=== PATIENT | male | born 1935 | race Caucasian/White ===

== ENCOUNTER 2017-05-26 16:29 | Inpatient (IN) | payer MEDICARE, OTHER ==
[~2017-05-26] VITALS: Ht 167.6 cm; Wt 68.5 kg
[2017-05-26 16:43] LABS: ABNORMAL IP MESSAGE 1; HEMATOCRIT 16.1 % (42.0-52.0); MEAN CORPUSCULAR HEMOGLOBIN 29.3 pg (29.0-33.0); MEAN CORPUSCULAR HGB CONC 29.8 g/dl (32.0-37.0); MEAN CORPUSCULAR VOLUME 98.2 fl (82.0-101.0); MEAN PLATELET VOLUME 11.2 fl (7.4-10.4); PLATELET COUNT 177 10^3/UL (140-415); RED BLOOD COUNT 1.64 10^6/ul (4.70-6.10); RED CELL DISTRIBUTION WIDTH 14.6 % (11.5-14.5)
[2017-05-26 16:45] LABS: ADD SCAN DIFF NO; HEMOGLOBIN 4.8 g/dl (14.0-18.0)
[2017-05-26] MEDS ORDERED: SOD CHLORIDE 0.9% 250 ML IV ONE (16:45)
--- NOTE | 2017-05-26 16:46 | RADRPT ---
PROCEDURE: CT Brain without contrast. CLINICAL INDICATION: Stroke TECHNIQUE: A CT of the brain was performed on a [employer]peed 64-slice CT scanner utilizing axial imaging from the skull base through the vertex without IV contrast. Multiplanar reformatted images were made. Images were reviewed on a PACS workstation. The CTDIvol is 45.01 mGy and the DLP is 72 0.23 mGycm. One of the following 3 dose reduction techniques were used: Automated exposure control; adjustment of the mA and/or kV according to patient size; or use of iterative reconstruction technique. COMPARISON: None available FINDINGS: There is no intracranial hemorrhage, mass effect, or midline shift. No extra-axial fluid collection is seen. The ventricles and sulci are age appropriate. Mild diffuse volume loss is present. Mild d ecreased attenuation is present in the bilateral subcortical white matter, centrum semiovale, and bi lateral periventricular white matter. Mild ventriculomegaly is present most compatible with central volume loss. Mild vascular calcifications are present of the bilateral intracranial internal caroti d arteries and the vertebral arteries. The visualized scalp and calvarium are normal. The bilateral orbits demonstrate prior lens replacem ent. The bilateral mastoid air cells and middle ear cavities are clear. IMPRESSION: 1. No evidence of acute intracranial hemorrhage, infarcts, or acute intracranial pathology. 2. Mild chronic microvascular ischemic disease and diffuse volume loss. 3. Mild atherosclerotic vascular disease A call report was made to Demond Harley at 05/26/2017 4:44:28 PM following the completion of the exami nation by the undersigned. RPTAT: HDC .Kelle Walsh MD, Date Time Electronically viewed and signed by .Kelle Walsh MD, MD on 05/26/2017 16:45 .C/
[2017-05-26 16:58] LABS: INR 1.28; PROTIME 16.1 Sec (12.2-14.2); PT RATIO 1.3
[2017-05-26 16:59] LABS: ANION GAP 10 (8-16); BLOOD UREA NITROGEN 23 mg/dl (7-20); CALCIUM 8.9 mg/dl (8.4-10.2); CARBON DIOXIDE 28 mmol/L (21-31); CHLORIDE 103 mmol/L (97-110); CREATININE 1.11 mg/dl (0.61-1.24); GLUCOSE 94 mg/dl (70-220); PARTIAL THROMBOPLASTIN TIME 31.2 Sec (25.0-35.0); POTASSIUM 4.2 mmol/L (3.5-5.1); SODIUM 137 mmol/L (135-144)
[2017-05-26] MEDS ORDERED: ACETAMINOPHEN 325 MG TAB PO PRN ×2 (17:00→17:30)
[2017-05-26] MEDS ORDERED: ONDANSETRON 4 MG INJ IV PRN (17:00)
[2017-05-26 17:03] LABS: EOSINOPHILS # 0.1 10^3/ul (0.0-0.5); LYMPHOCYTES # 0.8 10^3/ul (0.8-2.9); MONOCYTE # 0.1 10^3/ul (0.3-0.9); NEUTROPHIL # 5.4 10^3/ul (1.6-7.5)
[2017-05-26 17:13] LABS: TROPONIN-I < 0.012 ng/ml (0.00-0.12)
[2017-05-26] MEDS ORDERED: TIMO5DRO30 LEFT EYE (17:18)
[2017-05-26] MEDS ORDERED: PRD1OP5 RIGHT EYE (17:18)
[2017-05-26] MEDS ORDERED: RIVA20TA PO (17:20)
[2017-05-26] MEDS ORDERED: OXYB5TAB22 PO (17:20)
[2017-05-26] MEDS ORDERED: CLON1TAB3 PO (17:21)
[2017-05-26] MEDS ORDERED: ATOR20TA38 PO (17:22)
[2017-05-26] MEDS ORDERED: FEBU40TA PO (17:22)
--- NOTE | 2017-05-26 17:27 | HP ---
Date/Time of Note Date/Time of Note DATE: 05/26/17 TIME: 17:24 Assessment/Plan VTE Prophylaxis VTE Prophylaxis Intervention: SCD's Assessment/Plan Assessment/Plan 81 yo M with pmhx celiac, ?AFib presents with dark stools, fatigue, pallor found to have significant anemia to hgb 4s. Etio most likely GIBleed given hx, but cannot exclude other etios PLAN pRBC transfusion now GI eval in AM fobt ordered heme eval with haptoglobin, LDH, b12, TSH normocytosis suspect 2/2 rapid blood loss bilis normal which makes hemolysis seem less likely also would be unusual for new hemoglobinopathy to present at age 81. defer hgb electrophoresis SCDs only cont home eye drops and gout medicine, statin HOLD ATC HPI/ROS Admit Date/Time Admit Date/Time Hx of Present Illness Chief complaint: fatigue HPI 81 yo M with h/o celiac disease, h/o bowel obstruction, ?AFib presents with several weeks of feeling fatigued and dark stools. Labs in ER notable for hgb 4. Pt denies heavy NSAID use. PMH/Family/Social Past Medical History Celiac ?AFib glaucoma gout Social History Smoking Status: Never smoker Exam/Review of Systems Vital Signs Vitals Vital Signs Date Time Temp Pulse Resp B/P Pulse Ox O2 Delivery O2 Flow Rate FiO2 05/26/17 16:47 Nasal Cannula 2 05/26/17 16:39 98.3 81 19 155/56 100 Exam Exam very pale laying in bed nad MMM EOMI lungs clear no mrg abd soft no le edema labs reviewed, hgb 4s Labs Result Diagram: 05/26/17 1635 05/26/17 1635 Medications Medications Current Medications Acetaminophen (Tylenol Tab) 650 mg Q6H PRN PO PAIN LEVEL 1-3 OR FEVER; Start at 17:30; Status UNV Acetaminophen/ Hydrocodone Bitart ([place] (5/325)) 1 tab Q6H PRN PO MODERATE PAIN LEVEL 4-6; Start 05/26/17 at 17:30; Status UNV Morphine Sulfate (morphine) 2 mg Q4H PRN IV SEVERE PAIN LEVEL 7-10; Start at 17:30; Status UNV Docusate Sodium (Colace) 100 mg Q12H PRN PO CONSTIPATION; Start 05/26/17 at 17: 30; Status UNV STOLAR,WILLIS MD May 26, 2017 17:27
[2017-05-26] MEDS ORDERED: HYDROCODONE/APAP (5/325) TAB PO PRN (17:30)
[2017-05-26] MEDS ORDERED: DOCUSATE SODIUM 100 MG CAP PO PRN (17:30)
[2017-05-26] MEDS ORDERED: morphine 2 MG INJ IV PRN (17:30)
[2017-05-26] MEDS ORDERED: NACL 0.9% 3 ML SYG IV SCH (17:30)
--- NOTE | 2017-05-26 17:35 | RADRPT ---
PROCEDURE: XR Chest. CLINICAL INDICATION: Chest pain TECHNIQUE: AP view of the chest was performed. COMPARISON: None FINDINGS: The cardiomediastinal silhouette is within normal limits. The lungs are clear. No signs of pleural f luid or pneumothorax are seen. The osseous structures and soft tissues are unremarkable. IMPRESSION: No evidence for active cardiopulmonary disease. RPTAT: QQ .Tammi Martinez MD, MD Date Time Electronically viewed and signed by .Tammi Martinez MD, on 05/26/2017 17:35 .F/
--- NOTE | 2017-05-26 18:00 | ERA ---
ER Documentation Chief Complaint Date/Time DATE: 05/26/17 TIME: 17:57 Chief Complaint BIB RA FOR EVAL OF GENERALIZED WEAKNESS. PT PRESENTS COOL AND PALE HPI Patient is a 81-year-old male with hypertension, TIA, and celiac disease who presents with weakness. A code stroke was called from the field at 1623 due to left-sided facial droop. The patient says that he has not been feeling well for about 13 months. However 2 hours ago he developed acute onset weakness and left-sided facial droop. His blood sugar was 124. He says that he has been having black or bloody stools. He has had colonoscopy in the past. ROS All systems reviewed and are negative except as per history of present illness. Medications Home Meds Reported Medications Atorvastatin Calcium* (Atorvastatin Calcium*) 20 Mg Tablet, 20 MG PO QHS, #30 TAB 05/26/17 Febuxostat* (Uloric*) 40 Mg Tablet, 40 MG PO DAILY, TAB 05/26/17 Clonazepam* (Clonazepam*) 1 Mg Tablet, 1.5 MG PO QHS Y for SLEEP, TAB 05/26/17 Rivaroxaban* (Xarelto*) 20 Mg Tablet, 20 MG PO WITH DINNER, TAB 05/26/17 Oxybutynin Chloride* (Ditropan* XL) 5 Mg Tabsr, 5 MG PO DAILY, TAB.SA 05/26/17 Prednisolone Acetate* (Pred Forte*) 5 Ml Susp, 1 DROP RIGHT EYE QID, EA 05/26/17 Timolol Maleate* (Timoptic*) 0.5%-5ml Opht, 1 DROP LEFT EYE BID, #1 EA 05/26/17 Allergies Allergies: Coded Allergies: No Known Allergy (Unverified , 05/26/17) PMhx/Soc History of Surgery: Yes (BOWEL RESECTION) Anesthesia Reaction: No Hx Neurological Disorder: No Hx Respiratory Disorders: No Hx Cardiac Disorders: Yes (HTN) Hx Psychiatric Problems: No Hx Miscellaneous Medical Probl: Yes (DIVERTICULITIS, CELIAC DISEASE) Hx Alcohol Use: No Hx Substance Use: No Hx Tobacco Use: No Smoking Status: Never smoker FmHx Family History: No diabetes Physical Exam Vitals Vital Signs Date Time Temp Pulse Resp B/P Pulse Ox O2 Delivery O2 Flow Rate FiO2 05/26/17 16:47 Nasal Cannula 2 05/26/17 16:39 98.3 81 19 155/56 100 Physical Exam Const: Patient appears extremely pale Head: Atraumatic Eyes: Normal Conjunctiva ENT: Normal External Ears, Nose and Mouth. Neck: Full range of motion..~ No meningismus. Resp: Clear to auscultation bilaterally Cardio: Regular rate and rhythm, no murmurs Abd: Soft, non tender, non distended. Normal bowel sounds Skin: Pale skin diffusely Back: No midline or flank tenderness Ext: No cyanosis, or edema Neur: Awake and alert, cranial nerves II through XII intact, strength is 5 out of 5 in all 4 extremities, no slurred speech Psych: Normal Mood and Affect Result Diagram: 05/26/17 1635 05/26/17 1635 Results 24 hrs Laboratory Tests Test 05/26/17 16:35 White Blood Count 6.410^3/ul Red Blood Count 1.6410^6/ul Hemoglobin 4.8g/dl Hematocrit 16.1% Mean Corpuscular Volume 98.2fl Mean Corpuscular Hemoglobin 29.3pg Mean Corpuscular Hemoglobin Concent 29.8g/dl Red Cell Distribution Width 14.6% Platelet Count 23919^3/UL Mean Platelet Volume 11.2fl Neutrophils % 84.0% Band Neutrophils % 1.0% Lymphocytes % 12.0% Monocytes % 2.0% Eosinophils % 1.0% Neutrophils # 5.410^3/ul Lymphocytes # 0.810^3/ul Monocytes # 0.110^3/ul Eosinophils # 0.110^3/ul Prothrombin Time 16.1Sec Prothrombin Time Ratio 1.3 INR International Normalized Ratio 1.28 Activated Partial Thromboplast Time 31.2Sec Sodium Level 137mmol/L Potassium Level 4.2mmol/L Chloride Level 103mmol/L Carbon Dioxide Level 28mmol/L Anion Gap 10 Blood Urea Nitrogen 23mg/dl Creatinine 1.11mg/dl Glucose Level 94mg/dl Hemoglobin A1c % Calcium Level 8.9mg/dl Troponin I < 0.012ng/ml Current Medications Medications (Trade) Dose Ordered Sig/Denisa Route PRN Reason Start Time Stop Time Status Last Admin Dose Admin Sodium Chloride (NS) 250 ml @ 0 mls/hr Q0M ONCE IV 05/26/17 16:45 05/26/17 16:46 DC Ondansetron HCl (Zofran Inj) 4 mg BRIDGE ORDER PRN IV NAUSEA AND/OR VOMITING 05/26/17 17:00 05/27/17 16:59 Acetaminophen (Tylenol Tab) 650 mg ER BRIDGE PRN PO MILD PAIN/FEVER 05/26/17 17:00 05/27/17 16:59 IV Flush (NS 3 ml) 3 ml PER PROTOCOL IV 05/26/17 17:30 Acetaminophen (Tylenol Tab) 650 mg Q6H PRN PO PAIN LEVEL 1-3 OR FEVER 05/26/17 17:30 Acetaminophen/ Hydrocodone Bitart ([place] (5/325)) 1 tab Q6H PRN PO MODERATE PAIN LEVEL 4-6 05/26/17 17:30 Morphine Sulfate (morphine) 2 mg Q4H PRN IV SEVERE PAIN LEVEL 7-10 05/26/17 17:30 Docusate Sodium (Colace) 100 mg Q12H PRN PO CONSTIPATION 05/26/17 17:30 Procedures/MDM EKG read by me: Rate/Rhythm: Regular rate and rhythm at a normal rate Intervals: Normal Impression: No evidence of ischemia or arrhythmia CT brain shows no acute stroke per radiology. Patient is an 81-year-old male presents with acute weakness. He was found to be profoundly pale and I was concerned about acute anemia. A code stroke was called from the field at 1623. The patient arrived at 1627. I spoke with Dr. Toney from tele-neurology at 1650 and we agreed that this patient would not be a candidate for TPA and the code stroke was canceled. The patient was found to have a hemoglobin of 4.8 and was transfused 4 units of packed red blood cells. I believe this is likely the cause of his pale skin and weakness. I doubt acute stroke at this time. He likely has a slow GI bleed potentially from celiac disease versus colon cancer. I spoke to Dr. Hassan who will admit the patient to a medical surgical bed. She will consult gastroenterology for further evaluation. Critical Care: Time: 35 minutes excluding all billable procedures. Treatments/Evaluations: Close monitoring and treatment of unstable vital signs, cardiorespiratory, and neurologic status, while maintaining tight balance of fluid, respiratory, and cardiac interventions. Departure Diagnosis: Primary Impression: Anemia Qualified Code: D64.9 - Anemia, unspecified type Additional Impressions: GI bleed Qualified Code: K92.2 - Gastrointestinal hemorrhage, unspecified gastrointestinal hemorrhage type Acute weakness Condition: Serious AMANDA STRANGE MD May 26, 2017 18:00
[2017-05-26 18:31] LABS: IRON 16 ug/dl (35-150); LACTATE DEHYDROGENASE 195 IU/L (313-618)
[2017-05-26 18:40] LABS: TOTAL IRON BINDING CAPACITY 269 ug/dl (241-421)
[2017-05-26] MEDS ORDERED: clonAZEPAM 0.5 MG TAB PO PRN (19:00)
[2017-05-26 19:31] LABS: ALBUMIN 3.4 g/dl (3.3-4.9); BILIRUBIN,INDIRECT 0.7 mg/dl (0-1.1); BILIRUBIN,TOTAL 0.7 mg/dl (0.2-1.3); TOTAL PROTEIN 5.2 g/dl (6.1-8.1)
--- NOTE | 2017-05-26 20:16 | CONS ---
Date/Time of Note Date/Time of Note DATE: 05/26/17 TIME: 20:10 Assessment/Plan Assessment/Plan Chief Complaint/Hosp Course Impression: 1. symptomatic anemia with hgb 4.8 2. melena 3. weakness 4. celiac disease Recommendation: 1. transfuse to keep hgb > 8 2. protonix 40 mg iv bid 3. avoid NSAIDS 4. plan for emergent EGD and colonoscopy for hemostasis. 5. risks, benefits and alternatives of EGD and colonoscopy explained to patient. I answered all of patient's questions and then he provided informed consent. Problems: Consultation Date/Type/Reason Admit Date/Time Date of Consultation: May 26, 2017 Reason for Consultation melena, symptomatic anemia Hx of Present Illness 81-year-old male who is admitted for symptomatic anemia and melena. He has h/o hypertension, TIA, and celiac disease. A code stroke was called from the field at 1623 due to left-sided facial droop. The patient says that he has not been feeling well for about 13 months. However 2 hours ago he developed acute onset weakness and left-sided facial droop. His blood sugar was 124. He says that he has been having black or bloody stools. He has had colonoscopy and EGD 10 yrs ago that he cannot remember the result of. No f, c, cp, sob, brbpr, coffee ground emesis or hematemesis. all point ROS administered, pertinent positives and negatives in HPI otherwise negative. Past Medical History celiac disease, TIA, diverticulitis Medical History: high cholesterol, hypertension Past Surgical History Past Surgical Hx: appendectomy Family History Significant Family History: diabetes Social History Alcohol Use: none Smoking Status: Never smoker Drug Use: none Exam/Review of Systems Vital Signs Vitals Vital Signs Date Time Temp Pulse Resp B/P Pulse Ox O2 Delivery O2 Flow Rate FiO2 05/26/17 18:30 98.3 88 19 125/36 100 2.0 05/26/17 16:47 Nasal Cannula Exam Constitutional: alert, frail, oriented Psych: nl mood/affect, no complaints Head: atraumatic, normocephalic Eyes: EOMI, nl conjunctiva, nl lids, nl sclera ENMT: mucosa pink and moist, nl external ears & nose, nl lips & teeth, nl nasal mucosa & septum Neck: non-tender, supple Respiratory: clear to auscultation, normal air movement Cardiovascular: nl pulses, regular rate and rhythm Gastrointestinal: bowel sounds, non-tender, soft, surgical scars Neurological: nl mental status, nl speech, nl strength Results Result Diagram: 05/26/17 1635 05/26/17 1635 Results 24 hrs Laboratory Tests Test 05/26/17 16:35 White Blood Count 6.4 Red Blood Count 1.64 L Hemoglobin 4.8 *L Hematocrit 16.1 L Mean Corpuscular Volume 98.2 Mean Corpuscular Hemoglobin 29.3 Mean Corpuscular Hemoglobin Concent 29.8 L Red Cell Distribution Width 14.6 H Platelet Count 177 Mean Platelet Volume 11.2 H Neutrophils % 84.0 H Band Neutrophils % 1.0 Lymphocytes % 12.0 L Monocytes % 2.0 Eosinophils % 1.0 Neutrophils # 5.4 Lymphocytes # 0.8 Monocytes # 0.1 L Eosinophils # 0.1 Prothrombin Time 16.1 H Prothrombin Time Ratio 1.3 INR International Normalized Ratio 1.28 Activated Partial Thromboplast Time 31.2 Sodium Level 137 Potassium Level 4.2 Chloride Level 103 Carbon Dioxide Level 28 Anion Gap 10 Blood Urea Nitrogen 23 H Creatinine 1.11 Glucose Level 94 Hemoglobin A1c Calcium Level 8.9 Iron Level 16 L Total Iron Binding Capacity 269 Percent Iron Saturation 6 L Total Bilirubin 0.7 Direct Bilirubin 0.00 Indirect Bilirubin 0.7 Aspartate Amino Transf (AST/SGOT) 18 Alanine Aminotransferase (ALT/SGPT) 28 Alkaline Phosphatase 30 L Lactate Dehydrogenase 195 L Troponin I < 0.012 Total Protein 5.2 L Albumin 3.4 Vitamin B12 Level > 1000 H Thyroid Stimulating Hormone (TSH) 2.830 Medications Medications Current Medications Acetaminophen (Tylenol Tab) 650 mg Q6H PRN PO PAIN LEVEL 1-3 OR FEVER; Start at 17:30 Acetaminophen/ Hydrocodone Bitart ([place] (5/325)) 1 tab Q6H PRN PO MODERATE PAIN LEVEL 4-6; Start 05/26/17 at 17:30 Morphine Sulfate (morphine) 2 mg Q4H PRN IV SEVERE PAIN LEVEL 7-10; Start at 17:30 Docusate Sodium (Colace) 100 mg Q12H PRN PO CONSTIPATION; Start 05/26/17 at 17: 30 Atorvastatin Calcium (Lipitor) 20 mg QHS PO ; Start 05/26/17 at 21:00 Clonazepam (Klonopin) 1.5 mg QHS PRN PO SLEEP; Start 05/26/17 at 19:00 Febuxostat (Uloric) 40 mg DAILY PO ; Start 05/27/17 at 09:00 Oxybutynin Chloride (Ditropan Xl) 5 mg DAILY PO ; Start 05/27/17 at 09:00 Prednisolone Acetate (Pred-Forte 1%) 1 drop QID RIGHT EYE ; Start 05/26/17 at 21: 00 Timolol Maleate (Timoptic 0.5%) 1 drop BID LEFT EYE ; Start 05/26/17 at 21:00 JUVE MCHUGH MD May 26, 2017 20:15
[2017-05-26 20:30] VITALS: TEMP 98.3
[2017-05-26] MEDS ORDERED: BISACODYL (EC) 5 MG TAB PO ONE (20:30)
[2017-05-26] MEDS ORDERED: POLYETHYLENE GLYCOL 3350 119 GM POWDER PO ONE (20:30)
[2017-05-26] MEDS ORDERED: MAGNESIUM CITRATE 300 ML BTL PO ONE (20:30)
[2017-05-26 21:40] VITALS: Ht 167.6 cm; Wt 68.5 kg
[2017-05-26 21:49] VITALS: BP 146/67; RESP 19
[2017-05-26] MEDS: ATORVASTATIN 20 MG TAB PO SCH (23:18)
[2017-05-26] MEDS: PREDNISOLONE ACET 1% 5 ML OPH RIGHT EYE SCH (23:48)
[2017-05-26] MEDS: TIMOLOL 0.5% 5 ML OPH LEFT EYE SCH (23:48)
[2017-05-27] VITALS (10 sets, daily range): BP systolic 127–171; BP diastolic 57–74; PULSE 77–92; RESP 13–20
[2017-05-27 02:55] LABS: ADD UMIC NO; UR ASCORBIC ACID 40 mg/dL (NEGATIVE); UR BILIRUBIN (Dip) NEGATIVE (NEGATIVE); UR BLOOD (Dip) NEGATIVE (NEGATIVE); UR CLARITY CLEAR (CLEAR); UR COLOR YELLOW (YELLOW); UR GLUCOSE (Dip) NEGATIVE (NEGATIVE); UR KETONES (Dip) TRACE mg/dL (NEGATIVE); UR LEUKOCYTE ESTERASE (Dip) NEGATIVE Leu/ul (NEGATIVE); UR NITRITE (Dip) NEGATIVE (NEGATIVE); UR SPECIFIC GRAVITY (Dip) 1.014 (1.003-1.030); UR TOTAL PROTEIN (Dip) NEGATIVE (NEGATIVE); UR UROBILINOGEN (Dip) NEGATIVE (NEGATIVE)
[2017-05-27 03:07] LABS: BARBITURATES Negative (NEGATIVE); BENZODIAZEPINES Negative (NEGATIVE); CANNABINOIDS Negative (NEGATIVE); COCAINE Negative (NEGATIVE); OPIATES Negative (NEGATIVE)
[2017-05-27] MEDS ORDERED: POLYETHYLENE GLYCOL 3350 119 GM POWDER PO ONE (06:00)
[2017-05-27] MEDS ORDERED: BISACODYL (EC) 5 MG TAB PO ONE (06:00)
[2017-05-27 06:36] LABS: BASOPHILS % 0.2 % (0.0-2.0); EOSINOPHILS # 0.1 10^3/ul (0.0-0.5); EOSINOPHILS % 0.7 % (0.0-7.0); HEMATOCRIT 34.7 % (42.0-52.0); HEMOGLOBIN 11.4 g/dl (14.0-18.0); LYMPHOCYTES # 1.1 10^3/ul (0.8-2.9); LYMPHOCYTES % 8.7 % (15.0-51.0); MEAN CORPUSCULAR HGB CONC 32.9 g/dl (32.0-37.0); MEAN CORPUSCULAR VOLUME 91.3 fl (82.0-101.0); MEAN PLATELET VOLUME 11.7 fl (7.4-10.4); MONOCYTE # 0.8 10^3/ul (0.3-0.9); MONOCYTES % 6.9 % (0.0-11.0); NEUTROPHILS % 83.2 % (39.0-77.0); PLATELET COUNT 193 10^3/UL (140-415); RED CELL DISTRIBUTION WIDTH 16.4 % (11.5-14.5)
[2017-05-27 07:06] LABS: ADD SCAN DIFF NO
[2017-05-27] MEDS ORDERED: ONDANSETRON 4 MG INJ ONE (08:16)
[2017-05-27] MEDS ORDERED: METOCLOPRAMIDE 10 MG INJ ONE (08:16)
[2017-05-27] MEDS ORDERED: MIDAZOLAM 1 MG/ML 2 ML INJ ONE (08:16)
[2017-05-27] MEDS ORDERED: ETOMIDATE 20 MG INJ ONE (08:16)
[2017-05-27] MEDS ORDERED: FENTAnyl 50 MCG/ML VIAL ONE (08:16)
--- NOTE | 2017-05-27 08:20 | OPR ---
Date/Time of Note Date/Time of Note DATE: 05/27/17 TIME: 08:19 Operative Report Free Text/Dictation Recommendations: 1. no NSAIDs 2. glutten free diet 3. protonix 40 mg bid for at least 2 wks 4. if h/h drops further, will need to change protonix 40 po bid to 8 mg/hr gtt. 5. due to poor prep and large diverticulosis, can repeat colonoscopy if patient develops s/s of overt lower GI bleed, eg brbpr Procedure Date: May 27, 2017 Preoperative Diagnosis 1. symptomatic anemia 2. melena and hematochezia Surgeon: JUVE MCHUGH MD Anesthesia: MAC Anesthesiologist: AISHA RAMÍREZ MD Estimated Blood Loss: minimal Complications: None Pt Condition Post Procedure: stable Disposition: PACU Indications symptomatic anemia Operative\Procedure Findings 1. multiple gastric ulcers, one of which was bleeding which hemostasis was achieved with placement of one hemoclip 2. large diverticulosis 3. small internal hemorrhoids Procedure Description After informed consent and timeout, patient was sedated. After adequate sedation , I inserted an adult EGD scope from the mouth and advanced to 2nd portion of duodenum. Retroflexion was performed in the body of stomach revealing cardia and fundus. In the stomach, there are multiple shallow ulcers but one of which was actively oozing of blood s/p hemostasis with placement of one hemoclip. I then withdraw the EGD scope to GEJ and Z line at 40 cm, no hiatal hernia. Air then suctioned out as I completely removed the scope. Patient then turned around for colonoscopy. Rectal exam normal with normal tone. I then inserted an colonoscope from the rectum and advanced to distal transverse colon at 50 cm. I could not go any further due to the large diverticulosis which can be intubated by colonoscope and poor bowel prep. Retroflexion performed in rectum showing small sized internal hemorrhoids. I then suctioned out the air as I completely removed the colonoscope. JUVE MCHUGH MD May 27, 2017 08:20
[2017-05-27] MEDS ORDERED: METOCLOPRAMIDE 10 MG INJ IV PRN (09:00)
[2017-05-27] MEDS ORDERED: ONDANSETRON 4 MG INJ IV PRN (09:00)
[2017-05-27] MEDS: PREDNISOLONE ACET 1% 5 ML OPH RIGHT EYE SCH ×2 (09:00→12:32)
[2017-05-27] MEDS: FEBUXOSTAT 40 MG TABLET PO SCH (09:00)
[2017-05-27] MEDS ORDERED: PANTOPRAZOLE 40 MG INJ IV ONE (09:30)
--- NOTE | 2017-05-27 09:31 | PN ---
Date/Time of Note Date/Time of Note DATE: 05/27/17 TIME: 09:28 Assessment/Plan VTE Prophylaxis VTE Prophylaxis Intervention: SCD's Lines/Catheters IV [facility]ter [facility]from [facility]): Peripheral IV Assessment/Plan Assessment/Plan 81 yo M with pmhx diverticulosis, celiac admitted for symptomatic anemia. endoscopies today with multiple gastric ulcers one of which had evidence of active bleeding -->sp hemoclip, and diverticular disease PLAN PPI BID x 2 weeks, no NSAIDs q12 CBCs, hgb goal >7 if hgb <9, start IV PPI at 8 mg/hr also if BRBPR, will need repeat cscope here anticipate discharge in 1-2 days if hgb remains >9 SCDs only continue home meds Subjective 24 Hr Interval Summary Free Text/Dictation Pt at endoscopy at time of my attempted evaluation Exam/Review of Systems Vital Signs Vitals Vital Signs Date Time Temp Pulse Resp B/P Pulse Ox O2 Delivery O2 Flow Rate FiO2 05/27/17 09:16 80 16 147/74 100 Mask 8.0 05/27/17 09:07 98.0 Intake and Output 05/26/17 05/26/17 05/27/17 14:59 22:59 06:59 Output Total 1350 ml Balance -1350 ml Exam pt at endoscopy suite at time of my attempted evaluation endoscopy results 1. multiple gastric ulcers, one of which was bleeding which hemostasis was achieved with placement of one hemoclip 2. large diverticulosis 3. small internal hemorrhoids hgb 11 sp 4 unit prbcs Results Result Diagram: 05/27/17 0530 05/26/17 1635 Results 24 hrs Laboratory Tests Test 05/26/17 16:35 05/27/17 02:30 05/27/17 05:30 05/27/17 05:34 White Blood Count 6.4 12.0 #H Red Blood Count 1.64 L 3.80 #L Hemoglobin 4.8 *L 11.4 #L Hematocrit 16.1 L 34.7 #L Mean Corpuscular Volume 98.2 91.3 Mean Corpuscular Hemoglobin 29.3 30.0 Mean Corpuscular Hemoglobin Concent 29.8 L 32.9 Red Cell Distribution Width 14.6 H 16.4 H Platelet Count 177 193 Mean Platelet Volume 11.2 H 11.7 H Neutrophils % 84.0 H 83.2 H Band Neutrophils % 1.0 Lymphocytes % 12.0 L 8.7 L Monocytes % 2.0 6.9 Eosinophils % 1.0 0.7 Neutrophils # 5.4 10.0 H Lymphocytes # 0.8 1.1 Monocytes # 0.1 L 0.8 Eosinophils # 0.1 0.1 Prothrombin Time 16.1 H Prothrombin Time Ratio 1.3 INR International Normalized Ratio 1.28 Activated Partial Thromboplast Time 31.2 Sodium Level 137 Potassium Level 4.2 Chloride Level 103 Carbon Dioxide Level 28 Anion Gap 10 Blood Urea Nitrogen 23 H Creatinine 1.11 Glucose Level 94 Hemoglobin A1c Calcium Level 8.9 Iron Level 16 L Total Iron Binding Capacity 269 Percent Iron Saturation 6 L Total Bilirubin 0.7 Direct Bilirubin 0.00 Indirect Bilirubin 0.7 Aspartate Amino Transf (AST/SGOT) 18 Alanine Aminotransferase (ALT/SGPT) 28 Alkaline Phosphatase 30 L Lactate Dehydrogenase 195 L Troponin I < 0.012 Total Protein 5.2 L Albumin 3.4 Vitamin B12 Level > 1000 H Thyroid Stimulating Hormone (TSH) 2.830 Urine Color YELLOW Urine Clarity CLEAR Urine pH 6.0 Urine Specific [place] 1.014 Urine Ketones TRACE A Urine Nitrite NEGATIVE Urine Bilirubin NEGATIVE Urine Urobilinogen NEGATIVE Urine Leukocyte Esterase NEGATIVE Urine Hemoglobin NEGATIVE Urine Glucose NEGATIVE Urine Total Protein NEGATIVE Urine Opiates Screen Negative Urine Barbiturates Negative Urine Amphetamines Screen Negative Urine Benzodiazepines Screen Negative Urine Cocaine Screen Negative Urine Cannabinoids Negative Basophils % 0.2 Nucleated Red Blood Cells % 0.0 Basophils # 0.0 Nucleated Red Blood Cells # 0.0 Lab Scanned Report BLOOD TRANSFUSION Test 05/27/17 05:35 Lab Scanned Report BLOOD TRANSFUSION Medications Medications Current Medications Acetaminophen (Tylenol Tab) 650 mg Q6H PRN PO PAIN LEVEL 1-3 OR FEVER; Start at 17:30 Acetaminophen/ Hydrocodone Bitart ([place] (5/325)) 1 tab Q6H PRN PO MODERATE PAIN LEVEL 4-6; Start 05/26/17 at 17:30 Morphine Sulfate (morphine) 2 mg Q4H PRN IV SEVERE PAIN LEVEL 7-10; Start at 17:30 Docusate Sodium (Colace) 100 mg Q12H PRN PO CONSTIPATION; Start 05/26/17 at 17: 30 Atorvastatin Calcium (Lipitor) 20 mg QHS PO ; Start 05/26/17 at 21:00 Clonazepam (Klonopin) 1.5 mg QHS PRN PO SLEEP; Start 05/26/17 at 19:00 Febuxostat (Uloric) 40 mg DAILY PO ; Start 05/27/17 at 09:00 Oxybutynin Chloride (Ditropan Xl) 5 mg DAILY PO ; Start 05/27/17 at 09:00 Prednisolone Acetate (Pred-Forte 1%) 1 drop QID RIGHT EYE ; Start 05/26/17 at 21: 00 Timolol Maleate (Timoptic 0.5%) 1 drop BID LEFT EYE ; Start 05/26/17 at 21:00 Pantoprazole (Protonix Tab) 40 mg BID@06,18 PO ; Start 05/27/17 at 18:00 Pantoprazole (Protonix Iv) 40 mg ONCE ONCE IV ; Start 05/27/17 at 09:30; Stop at 09:31 WILLIS FUENTES MD May 27, 2017 09:31
[2017-05-27] MEDS: OXYBUTYNIN (XL) 5 MG TAB PO SCH (10:25)
[2017-05-27] MEDS: TIMOLOL 0.5% 5 ML OPH LEFT EYE SCH ×2 (10:32→20:06)
[2017-05-27] MEDS: PREDNISOLONE ACET 1% 5 ML OPH LEFT EYE SCH ×3 (12:49→20:06)
--- NOTE | 2017-05-27 14:01 | QN ---
Documentation Comment Teleneurology Telephone Call I was called briefly about this 81yo M with left facial droop and weakness on 05/26/[address] Harley from the ED. However, with further history, patient has been having left sided weakness for 13 months, and now has hemoglobin of 4.8. I agreed that patient is not a TPA candidate. No further consultation was requested MEKA VAZQUEZ May 27, 2017 14:01
[2017-05-27] MEDS: PANTOPRAZOLE (EC) 40 MG TAB PO SCH (17:21)
[2017-05-27] MEDS ORDERED: PANTOPRAZOLE 40 MG INJ IV SCH (18:00)
[2017-05-27] MEDS: ATORVASTATIN 20 MG TAB PO SCH (20:07)
[2017-05-27 21:30] LABS: BASOPHILS % 0.1 % (0.0-2.0); EOSINOPHILS # 0.1 10^3/ul (0.0-0.5); EOSINOPHILS % 1.1 % (0.0-7.0); HEMATOCRIT 29.4 % (42.0-52.0); HEMOGLOBIN 9.7 g/dl (14.0-18.0); LYMPHOCYTES # 1.1 10^3/ul (0.8-2.9); LYMPHOCYTES % 13.1 % (15.0-51.0); MEAN CORPUSCULAR HEMOGLOBIN 30.2 pg (29.0-33.0); MEAN CORPUSCULAR VOLUME 91.6 fl (82.0-101.0); MEAN PLATELET VOLUME 11.6 fl (7.4-10.4); MONOCYTE # 0.8 10^3/ul (0.3-0.9); MONOCYTES % 9.5 % (0.0-11.0); NEUTROPHIL # 6.3 10^3/ul (1.6-7.5); PLATELET COUNT 172 10^3/UL (140-415); RED BLOOD COUNT 3.21 10^6/ul (4.70-6.10); RED CELL DISTRIBUTION WIDTH 16.6 % (11.5-14.5); WHITE BLOOD COUNT 8.2 10^3/ul (4.8-10.8)
[2017-05-27 21:42] LABS: ADD SCAN DIFF NO
[2017-05-28 00:30] VITALS: BP 158/67; PULSE 89; RESP 18
[2017-05-28] MEDS: PANTOPRAZOLE (EC) 40 MG TAB PO SCH (05:36)
[2017-05-28 07:46] VITALS: BP 170/78; RESP 20
[2017-05-28] MEDS: PREDNISOLONE ACET 1% 5 ML OPH LEFT EYE SCH (09:00)
[2017-05-28 09:35] LABS: ADD SCAN DIFF NO
[2017-05-28] MEDS: OXYBUTYNIN (XL) 5 MG TAB PO SCH (10:17)
[2017-05-28] MEDS: TIMOLOL 0.5% 5 ML OPH LEFT EYE SCH (10:17)
[2017-05-28] MEDS: FEBUXOSTAT 40 MG TABLET PO SCH (10:17)
[2017-05-28 10:28] LABS: BASOPHILS % 0.3 % (0.0-2.0); EOSINOPHILS # 0.1 10^3/ul (0.0-0.5); EOSINOPHILS % 0.8 % (0.0-7.0); HEMATOCRIT 31.1 % (42.0-52.0); HEMOGLOBIN 9.9 g/dl (14.0-18.0); LYMPHOCYTES # 0.7 10^3/ul (0.8-2.9); LYMPHOCYTES % 8.8 % (15.0-51.0); MEAN CORPUSCULAR HEMOGLOBIN 29.3 pg (29.0-33.0); MEAN CORPUSCULAR HGB CONC 31.8 g/dl (32.0-37.0); MEAN PLATELET VOLUME 12.2 fl (7.4-10.4); MONOCYTE # 0.6 10^3/ul (0.3-0.9); MONOCYTES % 8.4 % (0.0-11.0); NEUTROPHILS % 81.4 % (39.0-77.0); PLATELET COUNT 167 10^3/UL (140-415); RED BLOOD COUNT 3.38 10^6/ul (4.70-6.10); RED CELL DISTRIBUTION WIDTH 16.4 % (11.5-14.5); WHITE BLOOD COUNT 7.4 10^3/ul (4.8-10.8)
[2017-05-28] MEDS ORDERED: PANT40TA4 PO (10:53)
--- NOTE | 2017-05-28 10:54 | PDOCDIS ---
Discharge Instructions CONDITION Patient Condition: Good HOME CARE INSTRUCTIONS: Diet Instructions: gluten freeSpecial Diet: NPO REFERRALS Referring Provider: ROBINA AYALA MD Other Referrals As we discussed, I am holding your blood thinner in case it was contributing to your bleeding. Please schedule an appointment with whoever had been prescribing your Xarelto (PCP or fast food fry cook) to discuss the risks/benefits of this medication with you given your recent bleeding. Follow up with the gastroenterologists/Dr Ayala this week Office Address [id number] [address] Office WILLIS FUENTES MD May 28, 2017 10:54
--- NOTE | 2017-05-28 11:10 | DS ---
Date/Time of Note Date/Time of Note DATE: 05/28/17 TIME: 11:03 Discharge Summary Admission/Discharge Info Admit Date/Time May 26, 2017 at 16:57 Discharge Date/Time Discharge Diagnosis anemia from acute blood loss from gastric ulcer Patient Condition: Good Consults gastroenterology Procedures EGD/CScope 7.2 Free Text/Dictation Recommendations: 1. no NSAIDs 2. glutten free diet 3. protonix 40 mg bid for at least 2 wks 4. if h/h drops further, will need to change protonix 40 po bid to 8 mg/hr gtt. 5. due to poor prep and large diverticulosis, can repeat colonoscopy if patient develops s/s of overt lower GI bleed, eg brbpr Procedure Date: May 27, 2017 Preoperative Diagnosis 1. symptomatic anemia 2. melena and hematochezia Surgeon: JUVE MCHUGH MD Anesthesia: MAC Anesthesiologist: AISHA RAMÍREZ MD Estimated Blood Loss: minimal Complications: None Pt Condition Post Procedure: stable Disposition: PACU Indications symptomatic anemia Operative\Procedure Findings 1. multiple gastric ulcers, one of which was bleeding which hemostasis was achieved with placement of one hemoclip 2. large diverticulosis 3. small internal hemorrhoids Procedure Description After informed consent and timeout, patient was sedated. After adequate sedation , I inserted an adult EGD scope from the mouth and advanced to 2nd portion of duodenum. Retroflexion was performed in the body of stomach revealing cardia and fundus. In the stomach, there are multiple shallow ulcers but one of which was actively oozing of blood s/p hemostasis with placement of one hemoclip. I then withdraw the EGD scope to GEJ and Z line at 40 cm, no hiatal hernia. Air then suctioned out as I completely removed the scope. Patient then turned around for colonoscopy. Rectal exam normal with normal tone. I then inserted an colonoscope from the rectum and advanced to distal transverse colon at 50 cm. I could not go any further due to the large diverticulosis which can be intubated by colonoscope and poor bowel prep. Retroflexion performed in rectum showing small sized internal hemorrhoids. I then suctioned out the air as I completely removed the colonoscope. Hx of Present Illness Chief complaint: fatigue HPI 81 yo M with h/o celiac disease, h/o bowel obstruction, ?AFib presents with several weeks of feeling fatigued and dark stools. Labs in ER notable for hgb 4. Pt denies heavy NSAID use. Hospital Course Pt transfused 4 units pRBCs in the ER, hgb improved to 11s. Underwent EGD and CScope 7.2, notable for gastric ulcers one of which with evidence of recent bleeding-->clipped and diverticulosis. Ulcer thought to be source of blood loss. Pt started on BID PPI per GI rec. Xarelto stopped. Pt advised to f/u with PCP. Post procedure hgb 9s, stable to following AM. GI also agreed with discharge on date of discharge Pt to f/u Home Meds Active Scripts Pantoprazole* (Pantoprazole*) 40 Mg Tablet., 40 MG PO BID@,18 for 14 Days, # 28 Prov:WILLIS FUENTES MD 05/28/17 Reported Medications Atorvastatin Calcium* (Atorvastatin Calcium*) 20 Mg Tablet, 20 MG PO QHS, #30 TAB 05/26/17 Febuxostat* (Uloric*) 40 Mg Tablet, 40 MG PO DAILY, TAB 05/26/17 Clonazepam* (Clonazepam*) 1 Mg Tablet, 1.5 MG PO QHS Y for SLEEP, TAB 05/26/17 Oxybutynin Chloride* (Ditropan* XL) 5 Mg Tabsr, 5 MG PO DAILY, TAB.SA 05/26/17 Prednisolone Acetate* (Pred Forte*) 5 Ml Susp, 1 DROP RIGHT EYE QID, EA 05/26/17 Timolol Maleate* (Timoptic*) 0.5%-5ml Opht, 1 DROP LEFT EYE BID, #1 EA 05/26/17 Discontinued Reported Medications Rivaroxaban* (Xarelto*) 20 Mg Tablet, 20 MG PO WITH DINNER, TAB 05/26/17 Follow-up Plan PCP within 7 days to talk about blood thinners for AFib GI within 7-14 days Primary Care Provider Care Physician No Primary Time spent on discharge: > 30 minutes Pending Labs Laboratory Tests Test 05/27/17 21:20 05/28/17 09:02 White Blood Count 8.210^3/ul (4.8-10.8) 7.410^3/ul (4.8-10.8) Red Blood Count 3.2110^6/ul (4.70-6.10) 3.3810^6/ul (4.70-6.10) Hemoglobin 9.7g/dl (14.0-18.0) 9.9g/dl (14.0-18.0) Hematocrit 29.4% (42.0-52.0) 31.1% (42.0-52.0) Mean Corpuscular Volume 91.6fl (82.0-101.0) 92.0fl (82.0-101.0) Mean Corpuscular Hemoglobin 30.2pg (29.0-33.0) 29.3pg (29.0-33.0) Mean Corpuscular Hemoglobin Concent 33.0g/dl (32.0-37.0) 31.8g/dl (32.0-37.0) Red Cell Distribution Width 16.6% (11.5-14.5) 16.4% (11.5-14.5) Platelet Count 35958^3/UL (140-415) 27200^3/UL (140-415) Mean Platelet Volume 11.6fl (7.4-10.4) 12.2fl (7.4-10.4) Neutrophils % 76.0% (39.0-77.0) 81.4% (39.0-77.0) Lymphocytes % 13.1% (15.0-51.0) 8.8% (15.0-51.0) Monocytes % 9.5% (0.0-11.0) 8.4% (0.0-11.0) Eosinophils % 1.1% (0.0-7.0) 0.8% (0.0-7.0) Basophils % 0.1% (0.0-2.0) 0.3% (0.0-2.0) Nucleated Red Blood Cells % 0.0/100WBC (0.0-0.0) 0.0/100WBC (0.0-0.0) Neutrophils # 6.310^3/ul (1.6-7.5) 6.010^3/ul (1.6-7.5) Lymphocytes # 1.110^3/ul (0.8-2.9) 0.710^3/ul (0.8-2.9) Monocytes # 0.810^3/ul (0.3-0.9) 0.610^3/ul (0.3-0.9) Eosinophils # 0.110^3/ul (0.0-0.5) 0.110^3/ul (0.0-0.5) Basophils # 0.010^3/ul (0.0-0.1) 0.010^3/ul (0.0-0.1) Nucleated Red Blood Cells # 0.010^3/ul (0.0-0.0) 0.010^3/ul (0.0-0.0) WILLIS FUENTES MD May 28, 2017 11:10
[2017-05-28 17:46] LABS: WHITE BLOOD COUNT 6.4 10^3/ul (4.8-10.8)
--- NOTE | 2017-05-28 23:49 | CONS ---
Date/Time of Note Date/Time of Note DATE: 05/28/17 TIME: 23:47 Assessment/Plan Assessment/Plan Chief Complaint/Hosp Course Impression: 1. symptomatic anemia with hgb 4.8 2. melena 3. weakness 4. celiac disease 5. s/p EGD and colonoscopy on 05/27 that showed: - multiple gastric ulcers, one of which was bleeding which hemostasis was achieved with placement of one hemoclip - large diverticulosis - small internal hemorrhoids Recommendation: 1. transfuse to keep hgb > 8 2. protonix 40 mg iv bid 3. avoid NSAIDS 4. ok from GI perspective to f/u with Dr. Ayala. Problems: Consultation Date/Type/Reason Admit Date/Time May 26, 2017 at 16:57 Initial Consult Date 05/26/17 Type of Consultation: GI 24 HR Interval Summary Free Text/Dictation no GI bleed. no n/v. Constitutional: improved Exam/Review of Systems Vital Signs Vitals Vital Signs Date Time Temp Pulse Resp B/P Pulse Ox O2 Delivery O2 Flow Rate FiO2 05/28/17 07:46 97.9 78 20 170/78 99 05/28/17 00:30 Room Air 05/27/17 09:16 8.0 Intake and Output 05/27/17 05/27/17 05/28/17 15:00 23:00 07:00 Intake Total 460 ml 120 ml Output Total 200 ml Balance 260 ml 120 ml Exam Constitutional: alert, oriented, well developed Psych: nl mood/affect, no complaints Head: atraumatic, normocephalic Eyes: EOMI, nl conjunctiva, nl lids ENMT: nl external ears & nose, nl lips & teeth, nl nasal mucosa & septum Neck: non-tender, supple Respiratory: clear to auscultation, normal air movement Cardiovascular: nl pulses, regular rate and rhythm Gastrointestinal: bowel sounds, non-tender, soft Results Result Diagram: 05/28/17 0902 05/26/17 1635 Results 24 hrs Laboratory Tests Test 05/28/17 09:02 White Blood Count 7.4 Red Blood Count 3.38 L Hemoglobin 9.9 L Hematocrit 31.1 L Mean Corpuscular Volume 92.0 Mean Corpuscular Hemoglobin 29.3 Mean Corpuscular Hemoglobin Concent 31.8 L Red Cell Distribution Width 16.4 H Platelet Count 167 Mean Platelet Volume 12.2 H Neutrophils % 81.4 H Lymphocytes % 8.8 L Monocytes % 8.4 Eosinophils % 0.8 Basophils % 0.3 Nucleated Red Blood Cells % 0.0 Neutrophils # 6.0 Lymphocytes # 0.7 L Monocytes # 0.6 Eosinophils # 0.1 Basophils # 0.0 Nucleated Red Blood Cells # 0.0 JUVE MCHUGH MD May 28, 2017 23:49
== END 2017-05-28 13:39 | disposition home or self-care (01) | DRG 811 ==
LOC: E/R 16:29 → MS2 16:57
PROVIDERS: ADMIT Internal Medicine; ATTEND Internal Medicine
PROC: 30233N1 Transfusion of Nonautologous Red Blood Cells into Peripheral Vein, Percutaneous Approach (ICD-10-PCS; principal; 2017-05-26)
PROC: 0DJD8ZZ Inspection of Lower Intestinal Tract, Via Natural or Artificial Opening Endoscopic (ICD-10-PCS; 2017-05-27)
PROC: 0W3P8ZZ Control Bleeding in Gastrointestinal Tract, Via Natural or Artificial Opening Endoscopic (ICD-10-PCS; 2017-05-27 08:30)
DX: D62 Acute posthemorrhagic anemia (principal); K25.4 Chronic or unspecified gastric ulcer with hemorrhage; K90.0 Celiac disease; I10 Essential (primary) hypertension; K64.8 Other hemorrhoids; K57.90 Diverticulosis of intestine, part unspecified, without perforation or abscess without bleeding; K57.30 Diverticulosis of large intestine without perforation or abscess without bleeding; Z86.73 Personal history of transient ischemic attack (TIA), and cerebral infarction without residual deficits
CPT/HCPCS: 36415; 36430; 70450; 71010; 80048; 80076; 80307; 81003; 82607; 82962; 83010; 83036; 83540; 83615; 84443; 84484; 85025; 85610; 85730; 86850; 86900; 86901; 86920; 92610; 93005; C9113; J2250; J2405; J2765; J3010; J7040; P9016